=== PATIENT | female | born 1935 | race Hispanic/Latino ===

== ENCOUNTER 2019-03-02 02:55 | Inpatient (IN) | payer MEDICARE ==
[2019-03-02] VITALS (12 sets, daily range): BP systolic 115–149; BP diastolic 54–94
[~2019-03-02] VITALS: Ht 154.9 cm; Wt 60.6 kg
[2019-03-02] MEDS ORDERED: ONDANSETRON HCL 4 MG/2 ML VIAL IVP PRN (04:15)
[2019-03-02] MEDS ORDERED: MORPHINE SULFATE 2 MG/ML 1ML SYG IVP PRN (04:15)
[2019-03-02 04:18] LABS: BASOPHILS % (AUTO) 0.6 % (0.0-5.0); EOSINOPHILS % (AUTO) 1.3 % (0.0-8.0); HEMATOCRIT 37.7 % (36-48); LYMPHOCYTES % (AUTO) 32.7 % (21.0-51.0); MEAN CORPUSCULAR HEMOGLOBIN 29.3 pg (27.0-33.0); MEAN CORPUSCULAR VOLUME 88.7 fL (79-99); MONOCYTES % (AUTO) 13.6 % (3.0-13.0); NEUTROPHILS % (AUTO) 51.8 % (40.0-77.0); PLATELET COUNT (AUTO) 202 K/uL (130-400); RED BLOOD CELL COUNT(AUTO) 4.26 MIL/uL (4.00-5.50); RED CELL DISTRIBUTION WIDTH 13.7 % (11.0-15.5); WHITE BLOOD COUNT (AUTO) 5.6 K/uL (4.8-10.8)
[2019-03-02 04:22] LABS: INR 0.96 (0.85-1.15); PARTIAL THROMBOPLASTIN TIME 27.4 SEC (26.3-35.5); PROTHROMBIN TIME 10.1 SEC (9.6-11.6)
[2019-03-02 04:24] LABS: ALBUMIN 3.5 g/dL (3.5-5.0); BILIRUBIN,TOTAL 0.4 mg/dL (0.2-1.0); CREATININE 0.9 mg/dL (0.5-1.5); POTASSIUM 3.6 mmol/L (3.5-5.1)
[2019-03-02] MEDS ORDERED: HYDR12.54 PO (04:57)
[2019-03-02] MEDS ORDERED: CALC600T12 PO (04:57)
[2019-03-02] MEDS ORDERED: LEVO175T9 PO (04:57)
[2019-03-02] MEDS ORDERED: VITA400C70 PO (04:57)
[2019-03-02] MEDS ORDERED: AMLO5TAB9 PO (04:57)
[2019-03-02] MEDS ORDERED: FENO134C PO (04:57)
[2019-03-02] MEDS ORDERED: AEC81 PO (04:57)
[2019-03-02] MEDS ORDERED: NITR0.4T50 SL (04:57)
[2019-03-02] MEDS ORDERED: CARV12.511 PO (04:57)
[2019-03-02] MEDS ORDERED: LOVA20TA3 PO (04:57)
[2019-03-02] MEDS ORDERED: NITROGLYCERIN 0.4 MG SL TAB SL SCH (05:30)
[2019-03-02] MEDS: LEVOTHYROXINE 75 MCG TABLET PO SCH (06:09)
[2019-03-02] MEDS: LEVOTHYROXINE 100 MCG TABLET PO SCH (06:09)
[2019-03-02] MEDS ORDERED: NITROGLYCERIN 5 MG/ML 10 ML VIAL IV ONE (07:22)
[2019-03-02] MEDS ORDERED: BIVALIRUDIN 250 MG/VIAL IV ONE (07:22)
[2019-03-02] MEDS ORDERED: IOHEXOL 350 MG/ML 100ML INFUS..BTL IV ONE ×2 (07:22→08:52)
[2019-03-02] MEDS ORDERED: IOHEXOL-350 50ML VIAL IV ONE (07:22)
[2019-03-02] MEDS ORDERED: LIDOCAINE HCL 2% 20ML ONE (07:23)
[2019-03-02] MEDS ORDERED: METHYLPREDNISOLONE SOD SUCC 125MG/2ML VIAL ONE (07:27)
[2019-03-02] MEDS ORDERED: DiphenhydrAMINE HCL 50 MG/ML VIAL ONE (07:28)
[2019-03-02] MEDS ORDERED: METHYLPREDNISOLONE SOD SUCC 125MG/2ML VIAL IVP SCH (07:30)
[2019-03-02] MEDS ORDERED: NON-FORMULARY MEDICATION 1 EACH (Levothyroxine Sodium 175 MCG) PO SCH (07:30)
[2019-03-02] MEDS ORDERED: DiphenhydrAMINE HCL 50 MG/ML VIAL IV SCH (07:30)
[2019-03-02] MEDS ORDERED: FENTANYL CITRATE PF 50 MCG/1 ML 2ML VIAL ONE (08:18)
[2019-03-02] MEDS ORDERED: MIDAZOLAM HCL 1 MG/ML 2ML VIAL ONE (08:18)
[2019-03-02] MEDS ORDERED: FENOFIBRATE 134 MG PO SCH (09:00)
[2019-03-02] MEDS: FAMOTIDINE/PF 20 MG/2 ML VIAL IV SCH (09:00)
[2019-03-02] MEDS ORDERED: SODIUM CHLORIDE 0.9% 1000ML 1,000 ML IV SCH (09:08)
[2019-03-02] MEDS ORDERED: SODIUM CHLORIDE 0.9% 1000ML 1,000 ML IV ONE (09:42)
[2019-03-02] MEDS: AMLODIPINE BESYLATE 5 MG TAB PO SCH (12:22)
[2019-03-02] MEDS: ASPIRIN 81 MG EC TAB PO SCH (12:22)
[2019-03-02] MEDS: HYDROCHLOROTHIAZIDE 25 MG TABLET PO SCH (12:23)
[2019-03-02] MEDS: VITAMIN E 400 UNIT CAPSULE PO SCH (12:23)
[2019-03-02] MEDS: CALCIUM 600 + VITAMIN D 400 TABLET PO SCH (12:23)
[2019-03-02] MEDS: CARVEDILOL 12.5 MG TABLET PO SCH ×2 (12:23→21:16)
[2019-03-02] MEDS ORDERED: LOVASTATIN 20 MG PO SCH (21:00)
[2019-03-02] MEDS: ACETAMINOPHEN 325 MG TAB PO PRN (22:41)
[2019-03-03 04:00] VITALS: BP 127/65
[2019-03-03 04:21] LABS: CREATININE 0.9 mg/dL (0.5-1.5); POTASSIUM 3.9 mmol/L (3.5-5.1)
[2019-03-03] MEDS: LEVOTHYROXINE 100 MCG TABLET PO SCH (07:01)
[2019-03-03] MEDS: LEVOTHYROXINE 75 MCG TABLET PO SCH (07:01)
[2019-03-03 07:43] VITALS: BP 129/55
[2019-03-03] MEDS: FAMOTIDINE/PF 20 MG/2 ML VIAL IV SCH (08:23)
[2019-03-03] MEDS: CALCIUM 600 + VITAMIN D 400 TABLET PO SCH (08:24)
[2019-03-03] MEDS: CARVEDILOL 12.5 MG TABLET PO SCH (08:24)
[2019-03-03] MEDS: AMLODIPINE BESYLATE 5 MG TAB PO SCH (08:24)
[2019-03-03] MEDS: VITAMIN E 400 UNIT CAPSULE PO SCH (08:24)
[2019-03-03] MEDS: HYDROCHLOROTHIAZIDE 25 MG TABLET PO SCH (08:24)
[2019-03-03] MEDS: ASPIRIN 81 MG EC TAB PO SCH (08:24)
[2019-03-03] MEDS: ACETAMINOPHEN 325 MG TAB PO PRN (08:25)
[2019-03-03 10:25] VITALS: BP 153/66
[2019-03-03 10:30] VITALS: BP 136/65
[2019-03-03] MEDS ORDERED: KETOROLAC TROMETHAMINE 15MG/ML IM SCH (10:39)
[2019-03-03] MEDS ORDERED: RANOLAZINE 500 MG TAB.SR.12H ONE (10:48)
[2019-03-03 11:36] VITALS: BP 142/57
[2019-03-03 15:22] VITALS: BP 135/63
[2019-03-03] MEDS ORDERED: RANO500T2 PO (16:43)
[2019-03-03] MEDS ORDERED: RANOLAZINE 500 MG TAB.SR.12H PO SCH (21:00)
== END 2019-03-03 17:45 | disposition home or self-care (01) | DRG 287 ==
LOC: 2DH 02:55 → EDBD 02:55
PROVIDERS: ADMIT Hospitalist; ATTEND Hospitalist
PROC: B2151ZZ Fluoroscopy of Left Heart using Low Osmolar Contrast (ICD-10-PCS; principal; 2019-03-02)
PROC: B2181ZZ Fluoroscopy of Left Internal Mammary Bypass Graft using Low Osmolar Contrast (ICD-10-PCS; 2019-03-02)
PROC: B2111ZZ Fluoroscopy of Multiple Coronary Arteries using Low Osmolar Contrast (ICD-10-PCS; 2019-03-02)
PROC: B2131ZZ Fluoroscopy of Multiple Coronary Artery Bypass Grafts using Low Osmolar Contrast (ICD-10-PCS; 2019-03-02)
PROC: 4A023N7 Measurement of Cardiac Sampling and Pressure, Left Heart, Percutaneous Approach (ICD-10-PCS; 2019-03-02)
PROC: B2171ZZ Fluoroscopy of Right Internal Mammary Bypass Graft using Low Osmolar Contrast (ICD-10-PCS; 2019-03-02)
PROC: B41FZZZ Fluoroscopy of Right Lower Extremity Arteries (ICD-10-PCS; 2019-03-02)
DX: T82.898A Other specified complication of vascular prosthetic devices, implants and grafts, initial encounter (principal); I24.9 Acute ischemic heart disease, unspecified; R79.89 Other specified abnormal findings of blood chemistry; E03.9 Hypothyroidism, unspecified; Z95.1 Presence of aortocoronary bypass graft; I25.10 Atherosclerotic heart disease of native coronary artery without angina pectoris; E78.5 Hyperlipidemia, unspecified; F17.200 Nicotine dependence, unspecified, uncomplicated; I10 Essential (primary) hypertension; I25.82 Chronic total occlusion of coronary artery; M81.0 Age-related osteoporosis without current pathological fracture; Z83.3 Family history of diabetes mellitus; Z82.49 Family history of ischemic heart disease and other diseases of the circulatory system; Z80.9 Family history of malignant neoplasm, unspecified; Z83.79 Family history of other diseases of the digestive system; Z83.2 Family history of diseases of the blood and blood-forming organs and certain disorders involving the immune mechanism; Y71.3 Surgical instruments, materials and cardiovascular devices (including sutures) associated with adverse incidents
CPT/HCPCS: 36415; 80048; 80053; 80061; 83880; 85025; 85610; 85730; 93005; 93459; 99156; 99157; C1760; C1769; C1894; G0378; J0583; J1200; J1644; J1885; J2250; J2930; J3010; J3490; J7030; Q9967